=== PATIENT | male | born 1990 | race Hispanic/Latino ===

== ENCOUNTER 2020-02-23 19:37 | Emergency (ER) | payer SELFPAY ==
[2020-02-23 19:55] VITALS: BP 142/95
--- NOTE | 2020-02-23 20:55 | Emergency Department Report ---
ED Male HPI - General Chief complaint: Urogenital-Male Stated complaint: GROIN PAIN Time Seen by Provider: 02/23/20 19:47 Source: patient Mode of arrival: Ambulatory Limitations: No Limitations - History of Present Illness Initial comments: This is a 29-year-old male nontoxic, well in appearance with no signs of distress presents to the ED for dysuria and penile discharge x several days. Paitent stated he had a sexual intercourse without protection. Denies any testicular pain, or swelling. Patient denies any other urinary symptoms. Denies any flank pain. Patient denies any fever, chills, headache, nausea, vomiting, chest pain or shortness of breathe. denies any other symptoms or complaints. Denies any allergies or PMH. MD Complaint: penile discharge, dysuria -: days(s) Location: penis Radiation: none Severity: mild Severity scale (0 -10): 8 Quality: burning Consistency: constant Improves with: none Worsens with: urination discharge, dysuria. denies: swelling, mass, rash, urinary retention, blood in urine, fever, nausea/vomiting, incontinence - Related Data Sexually active: Yes Previous Rx's Medication Instructions Recorded Last Taken Type Amoxicillin [Trimox CAP] 500 mg PO Q8H #20 capsule 09/11/15 Unknown Rx Ibuprofen [Motrin] 800 mg PO Q8HR PRN #14 tablet 09/11/15 Unknown Rx Ofloxacin [Ocuflox 0.3%] 1 - 2 drop OP QID #1 bottle 09/11/15 Unknown Rx Promethazine /Codeine 5 ml PO Q6H PRN #90 ml 09/11/15 Unknown Rx [Phenergan/Codeine 6.25-10 mg/5Ml] guaiFENesin [Mucinex] 600 mg PO Q6HR #20 09/11/15 Unknown Rx Allergies Allergy/AdvReac Type Severity Reaction Status Date / Time No Known Allergies Allergy Verified 09/11/15 04:27 ED Review of Systems ROS: Stated complaint: GROIN PAIN Other details as noted in HPI Comment: All other systems reviewed and negative Constitutional: denies: chills, fever Eyes: denies: eye pain, eye discharge, vision change ENT: denies: ear pain, throat pain Respiratory: denies: cough, shortness of breath, wheezing Cardiovascular: denies: chest pain, palpitations Endocrine: no symptoms reported Gastrointestinal: denies: abdominal pain, nausea, diarrhea Genitourinary: dysuria, discharge. denies: urgency, frequency, hematuria, testicular pain, testicular mass Musculoskeletal: denies: back pain, joint swelling, arthralgia Skin: denies: rash, lesions Neurological: denies: headache, weakness, paresthesias Psychiatric: denies: anxiety, depression Hematological/Lymphatic: denies: easy bleeding, easy bruising ED Past Medical Hx - Past Medical History Hx Hypertension: Yes - Social History Smoking Status: Never Smoker Substance Use Type: None - Medications Home Medications: Home Medications Medication Instructions Recorded Confirmed Last Taken Type Amoxicillin [Trimox CAP] 500 mg PO Q8H #20 capsule 09/11/15 Unknown Rx Ibuprofen [Motrin] 800 mg PO Q8HR PRN #14 tablet 09/11/15 Unknown Rx Ofloxacin [Ocuflox 0.3%] 1 - 2 drop OP QID #1 bottle 09/11/15 Unknown Rx Promethazine /Codeine 5 ml PO Q6H PRN #90 ml 09/11/15 Unknown Rx [Phenergan/Codeine 6.25-10 mg/5Ml] guaiFENesin [Mucinex] 600 mg PO Q6HR #20 09/11/15 Unknown Rx ED Physical Exam - General Limitations: No Limitations General appearance: alert, in no apparent distress - Head Head exam: Present: atraumatic, normocephalic - Eye Eye exam: Present: normal appearance - Neck Neck exam: Present: normal inspection, full ROM. Absent: tenderness, menin gismus, lymphadenopathy - Respiratory Respiratory exam: Absent: respiratory distress - Extremities Exam Extremities exam: Present: full ROM - Back Exam Back exam: Present: normal inspection, full ROM. Absent: tenderness, CVA tenderness (R), CVA tenderness (L), muscle spasm, paraspinal tenderness, vertebral tenderness, rash noted - Neurological Exam Neurological exam: Present: alert, oriented X3, normal gait - Psychiatric Psychiatric exam: Present: normal affect, normal mood - Skin Skin exam: Present: warm, dry, intact, normal color. Absent: rash ED Course Vital Signs 02/23/20 19:49 Temperature 98.0 F Pulse Rate 100 H Respiratory 17 Rate Blood Pressure 142/95 O2 Sat by Pulse 100 Oximetry - Reevaluation(s) Reevaluation #1: 02/23/20 20:55 Patient is speaking in full sentences with no signs of distress noted. ED Medical Decision Making - Lab Data Lab Results 02/23/20 Range/Units 20:08 Urine Color Yellow (Yellow) Urine Turbidity Turbid (Clear) Urine pH 7.0 (5.0-7.0) Ur Specific [place] 1.021 (1.003-1.030) Urine Protein 100 mg/dl (Negative) mg/dL Urine Glucose (UA) Neg (Negative) mg/dL Urine Ketones Neg (Negative) mg/dL Urine Blood Neg (Negative) Urine Nitrite Neg (Negative) Urine Bilirubin Neg (Negative) Urine Urobilinogen < 2.0 (<2.0) mg/dL Ur Leukocyte Esterase Lg (Negative) Urine WBC (Auto) > 182.0 H (0.0-6.0) /HPF Urine RBC (Auto) 14.0 (0.0-6.0) /HPF Urine Mucus 3+ /HPF - Medical Decision Making This is a 29-year-old male that presents with possible STD. Patient is stable was examined by me. There is no abdominal tenderness. No pelvic pain. UA obtained. Gonorrhea chlamydia urine ordered and pending. Patient was instructed to return in 3-5 days for GC results. Patient wanted empirical treatment so patient received 250 mg Rocephin and 1 g of azithromycin by mouth. Patient was instructed to Follow-up with a primary care doctor in 3-5 days or if symptoms worsen and continue return to emergency room as soon as possible. At time of discharge, the patient does not seem toxic or ill in appearance. No acute signs of distress noted. Patient agrees to discharge treatment plan of care. No further questions noted by the patient. Critical care attestation.: If time is entered above; I have spent that time in minutes in the direct care of this critically ill patient, excluding procedure time. ED Disposition Clinical Impression: Possible exposure to STD Disposition: DC-01 TO HOME OR SELFCARE Is pt being admited?: No Does the pt Need Aspirin: No Condition: Stable Instructions: Safe Sex (ED) Additional Instructions: Follow-up with a primary care doctor in 3-5 days or if symptoms worsen and co ntinue return to the emergency room as soon as possible. Referrals: PRIMARY MD ZARA [Primary Care Provider] - 3-5 Days KARINA ALANIZ MD [Staff Physician] - 3-5 Days [facility] [Provider Group] - 3-5 Days Forms: Work/School Release Form(ED)
[2020-02-23 21:05] LABS: Bilirubin,Urine NEG (Negative); Blood,Urine NEG (Negative); Color,Urine Yellow (Yellow); Mucus,Urine 3+ /HPF; Urobilinogen,Urine < 2.0 mg/dL (<2.0)
[2020-02-23 21:06] LABS: WBC,Urine > 182.0 /HPF (0.0-6.0)
[2020-02-23] MEDS ORDERED: LIDOCAINE-MPF (1%) 10 MG/1 ML VIAL 5 ML INFILTRATI ONE (21:06)
[2020-02-23] MEDS ORDERED: AZITHROMYCIN 250 MG TAB PO ONE (21:06)
== END 2020-02-23 22:15 | disposition home or self-care (01) ==
LOC: ED 19:37
DX: I10 Essential (primary) hypertension (principal); Z79.899 Other long term (current) drug therapy; Z20.2 Contact with and (suspected) exposure to infections with a predominantly sexual mode of transmission
CPT/HCPCS: 81001; 96372; 99283; J0696; 87591

== ENCOUNTER 2020-04-11 22:34 | Emergency (ER) | payer SELFPAY ==
[2020-04-11 23:27] LABS: Bilirubin,Urine NEG (Negative); Blood,Urine SM (Negative); Color,Urine Yellow (Yellow); Mucus,Urine FEW /HPF
[2020-04-11 23:34] LABS: WBC,Urine > 182.0 /HPF (0.0-6.0)
[2020-04-12] MEDS ORDERED: LIDOCAINE-MPF (1%) 10 MG/1 ML VIAL 5 ML INFILTRATI ONE (00:26)
[2020-04-12] MEDS ORDERED: AZITHROMYCIN 250 MG TAB PO ONE (00:26)
--- NOTE | 2020-04-12 01:04 | Emergency Department Report ---
ED Male HPI - General Chief complaint: Urogenital-Male Stated complaint: POSS STD Source: patient Mode of arrival: Ambulatory Limitations: No Limitations - History of Present Illness Initial comments: Patient is a 29-year-old white male with no past medical history who presents to the ED with complaint of acute onset persistent dysuria, urinary frequency and urgency and penile discharge for the last 1 week after having unprotected sexual intercourse with female stripper at a strip club over 1 week ago. Patient states that the symptoms have worsened in severity in the last 2 days. Patient denies testicular pain, hematuria, low back pain, nausea, vomiting, abdominal pain, fever, chills, sore throat, dizziness or diarrhea. MD Complaint: penile discharge, dysuria -: Sudden, week(s) (1) Location: penis Radiation: none Severity: severe Severity scale (0 -10): 7 Quality: aching, burning, sharp Consistency: constant Improves with: none Worsens with: urination denies other symptoms, discharge. denies: swelling, mass, rash, urinary retention, blood in urine, dysuria, fever, nausea/vomiting, incontinence, other - Related Data Sexually active: Yes Previous Rx's Medication Instructions Recorded Last Taken Type Amoxicillin [Trimox CAP] 500 mg PO Q8H #20 capsule 09/11/15 Unknown Rx Ibuprofen [Motrin] 800 mg PO Q8HR PRN #14 tablet 09/11/15 Unknown Rx Ofloxacin [Ocuflox 0.3%] 1 - 2 drop OP QID #1 bottle 09/11/15 Unknown Rx Promethazine /Codeine 5 ml PO Q6H PRN #90 ml 09/11/15 Unknown Rx [Phenergan/Codeine 6.25-10 mg/5Ml] guaiFENesin [Mucinex] 600 mg PO Q6HR #20 09/11/15 Unknown Rx Doxycycline Hyclate 100 mg PO Q12H #20 tablet. 04/12/20 Unknown Rx Sulfamethoxazole/Trimethoprim 1 each PO Q12H #20 tablet 04/12/20 Unknown Rx [Bactrim DS TAB] Allergies Allergy/AdvReac Type Severity Reaction Status Date / Time No Known Allergies Allergy Verified 09/11/15 04:27 ED Review of Systems ROS: Stated complaint: POSS STD Other details as noted in HPI Constitutional: denies: chills, fever Eyes: denies: eye pain, eye discharge, vision change ENT: denies: ear pain, throat pain Respiratory: denies: cough, shortness of breath, wheezing Cardiovascular: denies: chest pain, palpitations Endocrine: no symptoms reported Gastrointestinal: denies: abdominal pain, nausea, diarrhea Genitourinary: urgency, dysuria, frequency, discharge Musculoskeletal: denies: back pain, joint swelling, arthralgia Skin: denies: rash, lesions Neurological: denies: headache, weakness, paresthesias Psychiatric: denies: anxiety, depression Hematological/Lymphatic: denies: easy bleeding, easy bruising ED Past Medical Hx - Past Medical History Previous Medical History?: Yes Hx Hypertension: Yes - Surgical History Past Surgical History?: No - Social History Smoking Status: Current Every Day Smoker Substance Use Type: None - Medications Home Medications: Home Medications Medication Instructions Recorded Confirmed Last Taken Type Amoxicillin [Trimox CAP] 500 mg PO Q8H #20 capsule 09/11/15 Unknown Rx Ibuprofen [Motrin] 800 mg PO Q8HR PRN #14 tablet 09/11/15 Unknown Rx Ofloxacin [Ocuflox 0.3%] 1 - 2 drop OP QID #1 bottle 09/11/15 Unknown Rx Promethazine /Codeine 5 ml PO Q6H PRN #90 ml 09/11/15 Unknown Rx [Phenergan/Codeine 6.25-10 mg/5Ml] guaiFENesin [Mucinex] 600 mg PO Q6HR #20 09/11/15 Unknown Rx Doxycycline Hyclate 100 mg PO Q12H #20 tablet. 04/12/20 Unknown Rx Sulfamethoxazole/Trimethoprim 1 each PO Q12H #20 tablet 04/12/20 Unknown Rx [Bactrim DS TAB] ED Physical Exam - General Limitations: No Limitations General appearance: alert, in no apparent distress - Head Head exam: Present: atraumatic, normocephalic, normal inspection - Eye Eye exam: Present: normal appearance, PERRL, EOMI Pupils: Present: normal accommodation - ENT ENT exam: Present: normal exam, normal orophraynx, mucous membranes moist, TM's normal bilaterally, normal external ear exam - Neck Neck exam: Present: normal inspection, full ROM - Respiratory Respiratory exam: Present: normal lung sounds bilaterally. Absent: respiratory distress, wheezes, rales, rhonchi, stridor, chest wall tenderness, accessory muscle use, decreased breath sounds, prolonged expiratory - Cardiovascular Cardiovascular Exam: Present: normal rhythm, tachycardia, normal heart sounds. Absent: systolic murmur, diastolic murmur, rubs, gallop - GI/Abdominal GI/Abdominal exam: Present: soft, normal bowel sounds. Absent: tenderness, hyperactive bowel sounds, hypoactive bowel sounds, organomegaly - exam: Present: urethral discharge, circumcision External exam: Present: normal external exam - Extremities Exam Extremities exam: Present: normal inspection, full ROM, normal capillary refill - Back Exam Back exam: Present: normal inspection, full ROM. Absent: tenderness, CVA tenderness (R), CVA tenderness (L), muscle spasm, paraspinal tenderness, vertebral tenderness - Neurological Exam Neurological exam: Present: alert, oriented X3, CN II-XII intact, normal gait, reflexes normal - Psychiatric Psychiatric exam: Present: normal affect, normal mood - Skin Skin exam: Present: warm, dry, intact, normal color. Absent: rash ED Medical Decision Making - Medical Decision Making This is a 29-year-old white male with no past medical history who presents to the ED with complaint of acute onset persistent dysuria, urinary frequency and urgency and penile discharge for the last 1 week after having unprotected sexual intercourse with female stripper at a strip club over 1 week ago. Patient states that the symptoms have worsened in severity in the last 2 days. In the ED, patient is alert and oriented x3 and is not in distress. Urinalysis showed significant urinary tract infection consistent with STD. Chlamydia and gonorrhea test are pending. Patient was empirically treated for gonorrhea and chlamydia with Rocephin and azithromycin respectively in the ED. Patient was discharged home on medications and advised to follow-up at the [facility] department for further STD testing including HIV and syphilis. Patient was also advised to ensure that his sexual partner gets treated for the same. Patient was advised return to the ED immediately if symptoms get worse. Critical care attestation.: If time is entered above; I have spent that time in minutes in the direct care of this critically ill patient, excluding procedure time. ED Disposition Clinical Impression: STD (sexually transmitted disease), Urethritis, Acute urinary tract infection Disposition: TO HOME OR SELFCARE Is pt being admited?: No Does the pt Need Aspirin: No Condition: Stable Instructions: Urinary Tract Infection, Adult, [id number], Urethritis, Adult, Chlamydia, Male, Gonorrhea Additional Instructions: Urinalysis tests show significant infection consistent with STD. Chlamydia and gonorrhea tests are pending. You have therefore been treated empirically for gonorrhea and chlamydia in the ED today. Therefore follow-up with the [facility] for further STD testing including HIV and syphilis. Ensure that your sexual partner also gets treated for the same. Return to the ED immediately if symptoms get worse. Prescriptions: Sulfamethoxazole/Trimethoprim [Bactrim DS TAB] 1 each PO Q12H #20 tablet Doxycycline Hyclate 100 mg PO Q12H #20 tablet. Referrals: [facility] [Outside] - 3-5 Days Forms: STI Treatment and Prevention Time of Disposition: 01:15 Print Language: GREENLANDIC
[2020-04-12 02:07] VITALS: BP 144/87
== END 2020-04-12 02:00 | disposition home or self-care (01) ==
LOC: ED 22:34
DX: A63.8 Other specified predominantly sexually transmitted diseases (principal); N34.2 Other urethritis; N39.0 Urinary tract infection, site not specified
CPT/HCPCS: 81001; 96372; 99283; J0696

== ENCOUNTER 2020-07-24 00:29 | Emergency (ER) | payer OTHER ==
[2020-07-24 01:00] VITALS: BP 150/106
[2020-07-24] MEDS ORDERED: PHENAZOPYRIDINE 200 MG TAB PO ONE ×2 (02:58→03:03)
[2020-07-24] MEDS ORDERED: LIDOCAINE-MPF (1%) 10 MG/1 ML VIAL 5 ML INFILTRATI ONE (02:58)
[2020-07-24] MEDS ORDERED: LIDOCAINE-MPF (1%) 10 MG/1 ML VIAL 5 ML ONE (03:03)
[2020-07-24] MEDS ORDERED: ACETAMINOPHEN 500 MG TAB PO ONE (03:10)
--- NOTE | 2020-07-24 03:14 | Emergency Department Report ---
ED Male HPI - General Chief complaint: Urogenital-Male Stated complaint: DISCHARGE FROM PENIS Source: patient Mode of arrival: Ambulatory Limitations: No Limitations - History of Present Illness Initial comments: Patient is a 29-year-old white male with a history of hypertension who presents to the ED with complaint of acute onset dysuria, urinary frequency and urgency, penile pain and penile discharge for the last 3 days. Patient states that he had unprotected sexual intercourse with a lady stripper and suspect that she may have infected him with an STD. 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 Patient denies testicular pain, hematuria, dizziness, syncope, fever, chills, low back pain, abdominal pain, diarrhea, sore throat, headache, chest pain or shortness of breath. MD Complaint: penile discharge, dysuria -: Sudden, days(s) (3) Location: penis Radiation: none Severity: severe Severity scale (0 -10): 8 Quality: aching, burning, sharp Consistency: constant Improves with: none Worsens with: urination denies other symptoms, discharge, dysuria. denies: swelling, mass, rash, urinary retention, blood in urine, fever, nausea/vomiting, incontinence - Related Data Sexually active: Yes Previous Rx's Medication Instructions Recorded Last Taken Type Amoxicillin [Trimox CAP] 500 mg PO Q8H #20 capsule 09/11/15 Unknown Rx Ibuprofen [Motrin] 800 mg PO Q8HR PRN #14 tablet 09/11/15 Unknown Rx Ofloxacin [Ocuflox 0.3%] 1 - 2 drop OP QID #1 bottle 09/11/15 Unknown Rx Promethazine /Codeine 5 ml PO Q6H PRN #90 ml 09/11/15 Unknown Rx [Phenergan/Codeine 6.25-10 mg/5Ml] guaiFENesin [Mucinex] 600 mg PO Q6HR #20 09/11/15 Unknown Rx Doxycycline Hyclate 100 mg PO Q12H #20 tablet. 04/12/20 Unknown Rx Sulfamethoxazole/Trimethoprim 1 each PO Q12H #20 tablet 04/12/20 Unknown Rx [Bactrim DS TAB] DOXYCYCLINE Hyclate [Vibramycin 100 mg PO Q12HR #20 capsule 07/24/20 Unknown Rx CAP] Ibuprofen [Motrin] 600 mg PO Q8H PRN #20 tablet 07/24/20 Unknown Rx Sulfamethoxazole/Trimethoprim 1 each PO Q12H #20 tablet 07/24/20 Unknown Rx [Bactrim DS TAB] Allergies Allergy/AdvReac Type Severity Reaction Status Date / Time No Known Allergies Allergy Verified 07/24/20 00:41 ED Review of Systems ROS: Stated complaint: DISCHARGE FROM PENIS Other details as noted in HPI Constitutional: denies: chills, fever Eyes: denies: eye pain, eye discharge, vision change ENT: denies: ear pain, throat pain Respiratory: denies: cough, shortness of breath, wheezing Cardiovascular: denies: chest pain, palpitations Endocrine: no symptoms reported Gastrointestinal: denies: abdominal pain, nausea, diarrhea Genitourinary: urgency, dysuria, frequency, discharge Musculoskeletal: denies: back pain, joint swelling, arthralgia Skin: denies: rash, lesions Neurological: denies: headache, weakness, paresthesias Psychiatric: denies: anxiety, depression Hematological/Lymphatic: denies: easy bleeding, easy bruising ED Past Medical Hx - Past Medical History Previous Medical History?: No Hx Hypertension: Yes - Surgical History Past Surgical History?: No - Social History Smoking Status: Never Smoker Substance Use Type: None - Medications Home Medications: Home Medications Medication Instructions Recorded Confirmed Last Taken Type Amoxicillin [Trimox CAP] 500 mg PO Q8H #20 capsule 09/11/15 Unknown Rx Ibuprofen [Motrin] 800 mg PO Q8HR PRN #14 tablet 09/11/15 Unknown Rx Ofloxacin [Ocuflox 0.3%] 1 - 2 drop OP QID #1 bottle 09/11/15 Unknown Rx Promethazine /Codeine 5 ml PO Q6H PRN #90 ml 09/11/15 Unknown Rx [Phenergan/Codeine 6.25-10 mg/5Ml] guaiFENesin [Mucinex] 600 mg PO Q6HR #20 09/11/15 Unknown Rx Doxycycline Hyclate 100 mg PO Q12H #20 tablet. 04/12/20 Unknown Rx Sulfamethoxazole/Trimethoprim 1 each PO Q12H #20 tablet 04/12/20 Unknown Rx [Bactrim DS TAB] DOXYCYCLINE Hyclate [Vibramycin 100 mg PO Q12HR #20 capsule 07/24/20 Unknown Rx CAP] Ibuprofen [Motrin] 600 mg PO Q8H PRN #20 tablet 07/24/20 Unknown Rx Sulfamethoxazole/Trimethoprim 1 each PO Q12H #20 tablet 07/24/20 Unknown Rx [Bactrim DS TAB] ED Physical Exam - General Limitations: No Limitations General appearance: alert, in no apparent distress - Head Head exam: Present: atraumatic, normocephalic, normal inspection - Eye Eye exam: Present: normal appearance, PERRL, EOMI Pupils: Present: normal accommodation - ENT ENT exam: Present: normal exam, normal orophraynx, mucous membranes moist, TM's normal bilaterally, normal external ear exam - Neck Neck exam: Present: normal inspection, full ROM - Respiratory Respiratory exam: Present: normal lung sounds bilaterally. Absent: respiratory distress, wheezes, rales, rhonchi, chest wall tenderness, accessory muscle use - Cardiovascular Cardiovascular Exam: Present: normal rhythm, tachycardia, normal heart sounds. Absent: systolic murmur, diastolic murmur, rubs, gallop - GI/Abdominal GI/Abdominal exam: Present: soft, normal bowel sounds. 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 Absent: testicular tenderness, scrotal swelling, vertical testicular lie External exam: Present: normal external exam - Extremities Exam Extremities exam: Present: normal inspection, full ROM, normal capillary refill - Back Exam Back exam: Present: normal inspection, full ROM. Absent: tenderness, CVA tenderness (R), CVA tenderness (L), muscle spasm, paraspinal tenderness, vertebral tenderness - Neurological Exam Neurological exam: Present: alert, oriented X3, CN II-XII intact, normal gait, reflexes normal - Psychiatric Psychiatric exam: Present: normal affect, normal mood - Skin Skin exam: Present: warm, dry, intact, normal color. Absent: rash ED Course Vital Signs 07/24/20 00:49 Temperature 100.1 F H Pulse Rate 111 H Respiratory 18 Rate Blood Pressure 150/106 O2 Sat by Pulse 98 Oximetry ED Medical Decision Making - Medical Decision Making This is a 29-year-old white male with a history of hypertension who presents to the ED with complaint of acute onset dysuria, urinary frequency and urgency, penile pain and penile discharge for the last 3 days. Patient states that he had unprotected sexual intercourse with a lady stripper and suspect that she may have infected him with an STD. 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 In the ED, patient is alert and oriented x3 and is not in distress but febrile and tachycardic in triage. Patient was treated for pain in the ED and for fever and also received Rocephin 1 g intramuscular injection empirically for suspected gonorrhea infection. Prior to the patient being discharged the patient eloped from the ED without picking up his paperwork as well as prescriptions for suspected chlamydia infection. - Differential Diagnosis Gonorrhea; Chlamydia; Trichomonas; UTI; STD Critical care attestation.: If time is entered above; I have spent that time in minutes in the direct care of this critically ill patient, excluding procedure time. ED Disposition Clinical Impression: Urethritis due to Chlamydia trachomatis, Gonococcal urethritis in male, Acute urinary tract infection, Discharge from penis, Fever with chills Disposition: ELOPED Is pt being admited?: No Does the pt Need Aspirin: No Condition: Undetermined Instructions: Chlamydia, Male, Urinary Tract Infection, Adult, [id number] Additional Instructions: Take medication with food, drink plenty of fluids follow-up with your primary care physician in or department in 7 to 10 days for reevaluation. Return to the ED immediately if symptoms get worse. Ensure that you observe safe sexual practices. Prescriptions: Sulfamethoxazole/Trimethoprim [Bactrim DS TAB] 1 each PO Q12H #20 tablet Ibuprofen [Motrin] 600 mg PO Q8H PRN #20 tablet PRN Reason: Pain DOXYCYCLINE Hyclate [Vibramycin CAP] 100 mg PO Q12HR #20 capsule Referrals: [facility] Dep[facility] [Outside] - 7-10 days Forms: STI Treatment and Prevention Time of Disposition: 03:15 Print Language: YAKUT
[2020-07-24] MEDS ORDERED: ACETAMINOPHEN 500 MG TAB ONE (03:16)
== END 2020-07-24 03:15 | disposition left against medical advice (07) ==
LOC: ED 00:29
DX: A56.01 Chlamydial cystitis and urethritis (principal); A54.01 Gonococcal cystitis and urethritis, unspecified; N39.0 Urinary tract infection, site not specified; R50.9 Fever, unspecified; R36.9 Urethral discharge, unspecified; I10 Essential (primary) hypertension; Z79.899 Other long term (current) drug therapy
CPT/HCPCS: 96372; 99281; J0696